=== PATIENT | male | born 1960 | race American Indian/Alaskan Native ===

== ENCOUNTER 2017-12-24 09:42 | Emergency (ER) | payer BC, MEDICARE ==
[2017-12-24] MEDS ORDERED: Albuterol 0.083% Inhal Sol (2.5 mg/3 mL) UD INH STA (10:12)
--- NOTE | 2017-12-24 10:45 | ED PDOC ---
Addendum entered and electronically signed by Lesa Kenyon PA 12/24/17 18:53: Addendum Addendum: 12/24/17 18:49 PT presented to ED for stated history. He was hemodynamically stable and in no distress in ED. His BP was elevated, but he stated that he did not take his antihypertensive. he denies CP, focal weakness, headache, facial droop, visual changes in ED. His BP improved in ED with medication He was DC home with abx for possible LLL infiltrate. Referred to his PMD. DX: Pneumonia; Hypertension Addendum entered and electronically signed by Terri Lindsey MD 12/24/17 13:15: - PA / [employer] / Resident Statement / has reviewed & agrees with the documentation as recorded. Original Note: Arrival/HPI - General Chief Complaint: GI Problem Time Seen by Provider: 12/24/17 10:05 Historian: Patient - History of Present Illness Narrative History of Present Illness (Text): 12/24/17 10:39 57yo male with pmhx of hypertension, diabetes, Asthma, sleep apnea who present with complaint of diarrhea x7 since this morning and nonproductive cough with bodyache x 3days. States he did not take any medication for his symptoms. Denies fever, chills,nausea, vomiting, abdominal pain, dizziness, headache, focal weakness, SOB, wheezing, diaphoresis, any other complaint. The by the rj toth states he was with his nieces and nephews and think they were sick. She is worried that he might have a flu. Past Medical History - Provider Review Nursing Documentation Reviewed: Yes - Infectious Disease Hx of Infectious Diseases: None - Tetanus Immunization Tetanus Immunization: Unknown - Cardiac Hx Hypertension: Yes - Pulmonary Hx Asthma: Yes Hx Sleep Apnea: Yes - Endocrine/Metabolic Hx Diabetes Mellitus Type 2: Yes - Musculoskeletal/Rheumatological Hx Back Pain: Yes - Psychiatric Hx Psychophysiologic Disorder: No Hx Substance Use: No - Surgical History Hx Appendectomy: Yes - Anesthesia Hx Anesthesia: Yes - Suicidal Assessment Feels Threatened In Home Enviroment: No Family/Social History - Physician Review Nursing Documentation Reviewed: Yes Family/Social History: Unknown Family HX Smoking Status: Never Smoked Hx Alcohol Use: No Hx Substance Use: No Hx Substance Use Treatment: No Allergies/Home Meds Allergies/Adverse Reactions: Allergies No Known Allergies Allergy (Verified 03/24/14 12:58) Home Medications: Home Meds Medication Instructions Recorded Confirmed Aspirin [Adult Low Dose Aspirin EC] 1 tab PO DAILY 12/24/17 12/24/17 Atorvastatin [Lipitor] 1 tab PO HS 12/24/17 12/24/17 Baclofen [Lioresal] 1 tab PO HS 12/24/17 12/24/17 Carvedilol [Coreg] 1 tab PO BID 12/24/17 12/24/17 Glimepiride [amaRYL] 1 tab PO BID 12/24/17 12/24/17 Irbesartan [Avapro] 1 tab PO DAILY 12/24/17 12/24/17 MetFORMIN [glucoPHAGE] 1 tab PO BID 12/24/17 12/24/17 Review of Systems - Physician Review All systems were reviewed & negative as marked: Yes - Review of Systems Constitutional: Normal Eyes: Normal ENT: Normal Respiratory: Cough. absent: SOB, Sputum Cardiovascular: Normal Gastrointestinal: Diarrhea. absent: Abdominal Pain, Constipation, Nausea, Vomiting, Hematochezia, Hematemesis Genitourinary Male: Normal Musculoskeletal: Normal Skin: Normal Neurological: Normal Endocrine: Normal Hemo/Lymphatic: Normal Psychiatric: Normal Physical Exam Vital Signs Reviewed: Yes Vital Signs Temp Pulse Resp BP Pulse Ox 12/24/17 09:53 182/111 H 12/24/17 09:48 97.9 F 72 18 188/109 H 97 Temperature: Afebrile Blood Pressure: Hypertensive Pulse: Regular Respiratory Rate: Normal Appearance: Positive for: Well-Appearing, Non-Toxic, Comfortable Pain Distress: None Mental Status: Positive for: Alert and Oriented X 3 - Systems Exam Head: Present: Atraumatic, Normocephalic Pupils: Present: PERRL Extroacular Muscles: Present: EOMI Conjunctiva: Present: Normal Mouth: Present: Moist Mucous Membranes Neck: Present: Normal Range of Motion Respiratory/Chest: Present: Clear to Auscultation, Good Air Exchange. No: Respiratory Distress, Accessory Muscle Use, Wheezes, Decreased Breath Sounds, Rales, Retracting, Rhonchi Cardiovascular: Present: Regular Rate and Rhythm, Normal S1, S2. No: Murmurs Abdomen: Present: Normal Bowel Sounds, Other (Soft). No: Tenderness, Distention, Peritoneal Signs, Rebound, Guarding, McBurney's Point Tender, Rovsing's Sign Present Back: Present: Normal Inspection Upper Extremity: Present: Normal Inspection. No: Cyanosis, Edema Lower Extremity: Present: Normal Inspection. No: Edema Neurological: Present: GCS=15, CN II-XII Intact, Speech Normal Skin: Present: Warm, Dry, Normal Color. No: Rashes Psychiatric: Present: Alert, Oriented x 3, Normal Insight, Normal Concentration Medical Decision Making - RAD Interpretation Radiology Orders: 12/24/17 10:11 CHEST TWO VIEWS (PA/LAT) [RAD] Stat - Medication Orders Current Medication Orders: Discontinued Medications Albuterol Sulfate (Albuterol 0.083% Inhal Olena (2.5 Mg/3 Ml) Ud) 2.5 mg INH STAT STA Stop: 12/24/17 10:13 Disposition/Present on Arrival - Present on Arrival Any Indicators Present on Arrival: No History of DVT/PE: No History of Uncontrolled Diabetes: No Urinary Catheter: No History of Decub. Ulcer: No History Surgical Site Infection Following: None - Disposition Have Diagnosis and Disposition been Completed?: Yes Diagnosis: Pneumonia Disposition: HOME/ ROUTINE Disposition Time: 12:35 Patient Plan: Discharge Condition: STABLE Discharge Instructions (ExitCare): Pneumonia in Adults Additional Instructions: Follow up with your Doctor Return to ED for any new or worsening symptoms Prescriptions: Azithromycin [Zithromax] 250 mg PO DAILY #4 tab Benzonatate [Tessalon Perle] 100 mg PO TID #20 capsule Referrals: Sayda Hugo MD [Medical Doctor] - Follow up with primary Forms: [employer] (Nepali)
[2017-12-24 11:28] VITALS: BMI 39.1
[2017-12-24 11:29] VITALS: PULSE 69
[2017-12-24] MEDS ORDERED: Amoxicillin-Clav 875-125 mg Tab PO STA (12:23)
--- NOTE | 2017-12-24 12:58 | RAD ---
Date of service: 12/24/2017 HISTORY: cough COMPARISON: 03/24/2024 TECHNIQUE: Chest PA and lateral FINDINGS: LUNGS: No active pulmonary disease. PLEURA: No significant pleural effusion identified. No pneumothorax apparent. CARDIOVASCULAR: No aortic atherosclerotic calcification present OSSEOUS STRUCTURES: No significant abnormalities. VISUALIZED UPPER ABDOMEN: Normal. OTHER FINDINGS: None. IMPRESSION: No active disease.
[2017-12-24 15:16] VITALS: BP 152/79; RESP 17; TEMP 98; O2SAT 98
== END 2017-12-24 15:15 | disposition home or self-care (01) ==
LOC: ED 09:42
DX: J18.9 Pneumonia, unspecified organism (principal); I10 Essential (primary) hypertension; Z91.19 Patient's noncompliance with other medical treatment and regimen

== ENCOUNTER 2018-03-26 16:51 | Emergency (ER) | payer MEDICARE ==
[2018-03-26 16:52] VITALS: BMI 40.5
[2018-03-26 17:17] VITALS: TEMP 98.3
[2018-03-26] MEDS ORDERED: Sodium Chloride 0.9% 1,000 ML IV STA (17:34)
[2018-03-26 18:41] LABS: BASO # 0.02 K/mm3 (0.0-2.0); BASO % 0.2 % (0.0-3.0); EOS # 0.1 (0.0-0.7); GRAN # 5.22 (1.4-6.5); HEMOGLOBIN 12.6 g/dL (14.0-18.0); LYMPH # 1.9 (1.2-3.4); LYMPH % 23.2 % (22.0-35.0); MEAN CELL VOLUME 89.6 fl (80.0-105.0); MEAN CORPUSCULAR HEMOGLOBIN 30.4 pg (25.0-35.0); MEAN PLATELET VOLUME 9.7 fl (7.0-11.0); MONO # 0.9 (0.1-0.6); MONO % 10.6 % (1.0-6.0); RBC 4.14 10^6/uL (3.5-6.1); RED CELL DISTRIBUTION WIDTH 12.1 % (11.5-14.5)
[2018-03-26 18:55] LABS: ALB/GLOB RATIO 1.2 (1.1-1.8); ALBUMIN 4.4 g/dL (3.0-4.8)
--- NOTE | 2018-03-26 19:33 | ED PDOC ---
Arrival/HPI - General Chief Complaint: GI Problem Time Seen by Provider: 03/26/18 16:52 Historian: Patient - History of Present Illness Narrative History of Present Illness (Text): 03/26/18 19:30 A 57 year old male, whose past medical history includes hypertension, diabetes, asthma, sleep apnea, presents to the emergency department complaining of vomiting and diarrhea for 1 week. Patient reports she went to another hospital and was not admitted last week. He did not follow-up with PMD. Patient denies any shortness of breath, fever, any pain, hematuria, bloody stool, or any other complaints at this time. PMD: Dr. Mary Arana Past Medical History - Provider Review Nursing Documentation Reviewed: Yes - Infectious Disease Hx of Infectious Diseases: None - Tetanus Immunization Tetanus Immunization: Unknown - Cardiac Hx Hypertension: Yes - Pulmonary Hx Asthma: Yes Hx Sleep Apnea: Yes - Endocrine/Metabolic Hx Diabetes Mellitus Type 2: Yes - Musculoskeletal/Rheumatological Hx Back Pain: Yes - Psychiatric Hx Psychophysiologic Disorder: No Hx Substance Use: No - Surgical History Hx Appendectomy: Yes - Anesthesia Hx Anesthesia: Yes Hx Anesthesia Reactions: No Hx Malignant Hyperthermia: No - Suicidal Assessment Feels Threatened In Home Enviroment: No Family/Social History - Physician Review Nursing Documentation Reviewed: Yes Family/Social History: No Known Family HX Smoking Status: Never Smoked Hx Alcohol Use: No Hx Substance Use: No Hx Substance Use Treatment: No Allergies/Home Meds Allergies/Adverse Reactions: Allergies No Known Allergies Allergy (Verified 03/24/14 12:58) Home Medications: Home Meds Medication Instructions Recorded Confirmed Aspirin [Adult Low Dose Aspirin EC] 1 tab PO DAILY 12/24/17 12/24/17 RX: Atorvastatin [Lipitor] 1 tab PO HS 12/24/17 12/24/17 RX: Baclofen [Lioresal] 1 tab PO HS 12/24/17 12/24/17 RX: Carvedilol [Coreg] 1 tab PO BID 12/24/17 12/24/17 RX: Glimepiride [amaRYL] 1 tab PO BID 12/24/17 12/24/17 RX: Irbesartan [Avapro] 1 tab PO DAILY 12/24/17 12/24/17 RX: MetFORMIN [glucoPHAGE] 1 tab PO BID 12/24/17 12/24/17 Review of Systems - Physician Review All systems were reviewed & negative as marked: Yes - Review of Systems Constitutional: absent: Fevers Respiratory: absent: SOB Cardiovascular: absent: Chest Pain Gastrointestinal: Diarrhea, Vomiting. absent: Abdominal Pain, Stool Changes (no bloody stool) Genitourinary Male: absent: Hematuria Physical Exam Vital Signs Reviewed: Yes Vital Signs Temp Pulse Resp BP Pulse Ox 03/26/18 16:52 98.3 F 86 18 107/77 97 Temperature: Afebrile Blood Pressure: Normal Pulse: Regular Respiratory Rate: Normal Appearance: Positive for: Well-Appearing, Non-Toxic, Comfortable Pain Distress: None Mental Status: Positive for: Alert and Oriented X 3 - Systems Exam Head: Present: Atraumatic, Normocephalic Pupils: Present: PERRL Extroacular Muscles: Present: EOMI Conjunctiva: Present: Normal Mouth: Present: Moist Mucous Membranes Neck: Present: Normal Range of Motion Respiratory/Chest: Present: Clear to Auscultation, Good Air Exchange. No: Respiratory Distress, Accessory Muscle Use Cardiovascular: Present: Regular Rate and Rhythm, Normal S1, S2. No: Murmurs Abdomen: No: Tenderness, Distention, Peritoneal Signs Back: Present: Normal Inspection Upper Extremity: Present: Normal Inspection. No: Cyanosis, Edema Lower Extremity: Present: Normal Inspection. No: Edema Neurological: Present: GCS=15, CN II-XII Intact, Speech Normal Skin: Present: Warm, Dry, Normal Color. No: Rashes Psychiatric: Present: Alert, Oriented x 3, Normal Insight, Normal Concentration Medical Decision Making ED Course and Treatment: 03/26/18 19:33 Impression: 57 year old male with vomiting/diarrhea. Plan: -- Abd/Pelvis CT -- Labs -- Urine Culture -- Urinalysis -- Pepcid -- Zofran -- IV Fluids -- Reassess and disposition Prior Visits: Notes and results from previous visits were reviewed. Last seen here on 12/24/2017 for diarrhea, non-productive cough, and body aches. Patient was discharged home. Progress Notes: - Lab Interpretations Lab Results: Total Bilirubin 1.1 mg/dL (0.2-1.3) 03/26/18 18:00 AST 37 U/L (17-59) 03/26/18 18:00 ALT 27 U/L (7-56) 03/26/18 18:00 Alkaline Phosphatase 87 U/L (38-126) 03/26/18 18:00 Total Protein 8.1 g/dL (5.8-8.3) 03/26/18 18:00 Albumin 4.4 g/dL (3.0-4.8) 03/26/18 18:00 Globulin 3.7 gm/dL 03/26/18 18:00 Albumin/Globulin Ratio 1.2 (1.1-1.8) 03/26/18 18:00 Amylase 192 U/L (35-125) H 03/26/18 18:00 Lipase 125 U/L (23-300) 03/26/18 18:00 I have reviewed the lab results: Yes - RAD Interpretation Radiology Orders: 03/26/18 18:57 ABD & PELVIS W/O PO OR IV CONT [CT] Stat - Medication Orders Current Medication Orders: Sodium Chloride (Sodium Chloride 0.9%) 1,000 mls @ 250 mls/hr IV .Q4H STA Stop: 03/26/18 21:33 Last Admin: 03/26/18 18:05 Dose: 250 mls/hr eMAR Start Stop Document 03/26/18 18:05 EQ (Rec: 03/26/18 18:05 EQ [facility] [id number]) Intravenous Solution Start Date 03/26/18 Start Time 18:05 Discontinued Medications Famotidine (Pepcid) 20 mg IVP STAT STA Stop: 03/26/18 17:35 Last Admin: 03/26/18 18:05 Dose: 20 mg IVP Administration Document 03/26/18 18:05 EQ (Rec: 03/26/18 18:05 EQ [facility] [id number]) Charges for Administration # of IVP Administrations 1 Ondansetron HCl (Zofran Inj) 4 mg IVP STAT STA Stop: 03/26/18 17:35 Last Admin: 03/26/18 18:05 Dose: 4 mg IVP Administration Document 03/26/18 18:05 EQ (Rec: 03/26/18 18:05 EQ [facility] [id number]) Charges for Administration # of IVP Administrations 1 - Scribe Statement The provider has reviewed the documentation as recorded by the Deseanibmary Stringer Provider Scribe Attestation: All medical record entries made by the Scribe were at my direction and personally dictated by me. I have reviewed the chart and agree that the record accurately reflects my personal performance of the history, physical exam, medical decision making, and the department course for this patient. I have also personally directed, reviewed, and agree with the discharge instructions and disposition. Disposition/Present on Arrival - Present on Arrival Any Indicators Present on Arrival: No History of DVT/PE: No History of Uncontrolled Diabetes: No Urinary Catheter: No History of Decub. Ulcer: No History Surgical Site Infection Following: None - Disposition Have Diagnosis and Disposition been Completed?: Yes Diagnosis: Colitis Disposition: HOME/ ROUTINE Disposition Time: 20:00 Condition: GOOD Discharge Instructions (ExitCare): Colitis (DC) Additional Instructions: HUA FELIX, thank you for letting us take care of you today. Your provider was Khloe Marroquin MD and you were treated for VOMITING. The emergency medical care you received today was directed at your acute symptoms. If you were prescribed any medication, please fill it and take as directed. It may take several days for your symptoms to resolve. Return to the Emergency Department if your symptoms worsen, do not improve, or if you have any other problems. Please contact your doctor or call one of the physicians/clinics you have been referred to that are listed on the Patient Visit Information form that is included in your discharge packet. Bring any paperwork you were given at discharge with you along with any medications you are taking to your follow up visit. Our treatment cannot replace ongoing medical care by a primary care provider outside of the emergency department. Thank you for allowing the [facility] team to be part of your care today. If you had an X-Ray or CT scan: A Radiologist will review the ED reading if any change in treatment is needed we will contact you. If you had a blood, urine, or wound culture: It will take several days for the results, if any change in treatment is needed we will contact you. If you had an STI test: It will take 48 hours for the results. Please call after 1 week if you have not heard back. Prescriptions: Levofloxacin [Levaquin] 500 mg PO DAILY #7 tablet Metronidazole [Flagyl] 500 mg PO TID #21 tablet Referrals: Mary Arana MD [Primary Care Provider] - Follow up with primary Forms: [employer] (Nepalese)
--- NOTE | 2018-03-26 21:28 | ED PDOC ---
Physical Exam Vital Signs Temp Pulse Resp BP Pulse Ox 03/26/18 20:22 79 18 109/71 97 03/26/18 16:52 98.3 F 86 18 107/77 97 Medical Decision Making ED Course and Treatment: 03/26/18 21:02 Case endorsed to me by Dr. Bermudez pending CT of abdomen and pelvis, reassessment, and disposition. EXAM: CT Abdomen and Pelvis Without IV contrast Electronically signed on Mar 26, 2018 9:05:48 PM EST by: Carlos A Johnson M.D., IMPRESSION: 1. Thick walled fluid filled loops of jejunum as well as ileum compatible with enteritis. Infectious and inflammatory etiologies are considered. 2. Mucosal wall thickening of the lower esophagus could indicate some reflux esophagitis. 3. Prostatic hypertrophy. Measurement is given above. 4. A small umbilical hernia is identified which contains a segment of small intestine without evidence of obstruction. 5. A small right inguinal-scrotal hernia is noted which contains fat. 03/26/18 21:28 On re-evaluation, patient is in no acute distress. I have discussed the results and plan with the patient, who expresses understanding. Patient in agreement with plan to be discharged home. Patient is stable for discharge. Patient was instructed to follow up with physician or return if symptoms worsen or new concerning symptoms arise. - Lab Interpretations Lab Results: Total Bilirubin 1.1 mg/dL (0.2-1.3) 03/26/18 18:00 AST 37 U/L (17-59) 03/26/18 18:00 ALT 27 U/L (7-56) 03/26/18 18:00 Alkaline Phosphatase 87 U/L (38-126) 03/26/18 18:00 Total Protein 8.1 g/dL (5.8-8.3) 03/26/18 18:00 Albumin 4.4 g/dL (3.0-4.8) 03/26/18 18:00 Globulin 3.7 gm/dL 03/26/18 18:00 Albumin/Globulin Ratio 1.2 (1.1-1.8) 03/26/18 18:00 Amylase 192 U/L (35-125) H 03/26/18 18:00 Lipase 125 U/L (23-300) 03/26/18 18:00 - RAD Interpretation Radiology Orders: 03/26/18 18:57 ABD & PELVIS W/O PO OR IV CONT [CT] Stat - Medication Orders Current Medication Orders: Sodium Chloride (Sodium Chloride 0.9%) 1,000 mls @ 250 mls/hr IV .Q4H STA Stop: 03/26/18 21:33 Last Admin: 03/26/18 18:05 Dose: 250 mls/hr eMAR Start Stop Document 03/26/18 18:05 EQ (Rec: 03/26/18 18:05 EQ [facility] [id number]) Intravenous Solution Start Date 03/26/18 Start Time 18:05 Discontinued Medications Famotidine (Pepcid) 20 mg IVP STAT STA Stop: 03/26/18 17:35 Last Admin: 03/26/18 18:05 Dose: 20 mg IVP Administration Document 03/26/18 18:05 EQ (Rec: 03/26/18 18:05 EQ [facility] [id number]) Charges for Administration # of IVP Administrations 1 Ondansetron HCl (Zofran Inj) 4 mg IVP STAT STA Stop: 03/26/18 17:35 Last Admin: 03/26/18 18:05 Dose: 4 mg IVP Administration Document 03/26/18 18:05 EQ (Rec: 03/26/18 18:05 EQ [facility] [id number]) Charges for Administration # of IVP Administrations 1 - Scribe Statement The provider has reviewed the documentation as recorded by the Aj Nguyen Provider Scribe Attestation: All medical record entries made by the Scribe were at my direction and personally dictated by me. I have reviewed the chart and agree that the record accurately reflects my personal performance of the history, physical exam, medical decision making, and the department course for this patient. I have also personally directed, reviewed, and agree with the discharge instructions and disposition. Disposition/Present on Arrival - Present on Arrival Any Indicators Present on Arrival: No History of DVT/PE: No History of Uncontrolled Diabetes: No Urinary Catheter: No History of Decub. Ulcer: No History Surgical Site Infection Following: None - Disposition Have Diagnosis and Disposition been Completed?: Yes Diagnosis: Colitis Disposition: HOME/ ROUTINE Disposition Time: 21:32 Condition: STABLE Discharge Instructions (ExitCare): Colitis (DC) Additional Instructions: HUA FELIX, thank you for letting us take care of you today. Your provider was Khloe Marroquin MD and you were treated for VOMITING. The emergency medical care you received today was directed at your acute symptoms. If you were prescribed any medication, please fill it and take as directed. It may take several days for your symptoms to resolve. Return to the Emergency Department if your symptoms worsen, do not improve, or if you have any other problems. Please contact your doctor or call one of the physicians/clinics you have been referred to that are listed on the Patient Visit Information form that is included in your discharge packet. Bring any paperwork you were given at discharge with you along with any medications you are taking to your follow up visit. Our treatment cannot replace ongoing medical care by a primary care provider outside of the emergency department. Thank you for allowing the [facility] team to be part of your care today. If you had an X-Ray or CT scan: A Radiologist will review the ED reading if any change in treatment is needed we will contact you. If you had a blood, urine, or wound culture: It will take several days for the results, if any change in treatment is needed we will contact you. If you had an STI test: It will take 48 hours for the results. Please call after 1 week if you have not heard back. Prescriptions: Levofloxacin [Levaquin] 500 mg PO DAILY #7 tablet Metronidazole [Flagyl] 500 mg PO TID #21 tablet Referrals: Mary Arana MD [Primary Care Provider] - Follow up with primary Forms: [employer] (Setswana)
[2018-03-26 21:48] VITALS: BP 106/76; PULSE 72; RESP 16; O2SAT 99
--- NOTE | 2018-03-27 14:47 | CT ---
Date of service: 03/26/2018 PROCEDURE: CT Abdomen and Pelvis without intravenous contrast HISTORY: diffuse abd pain with vomiting and diarrhea COMPARISON: None. TECHNIQUE: Technique. Contrast dose: Radiation dose: Total exam DLP = 1473.73 mGy-cm. This CT exam was performed using one or more of the following dose reduction techniques: Automated exposure control, adjustment of the mA and/or kV according to patient size, and/or use of iterative reconstruction technique. FINDINGS: LOWER THORAX: Unremarkable. LIVER: Unremarkable. No gross lesion or ductal dilatation. GALLBLADDER AND BILE DUCTS: Unremarkable. PANCREAS: Unremarkable. No gross lesion or ductal dilatation. SPLEEN: Unremarkable. ADRENALS: Unremarkable. No mass. KIDNEYS AND URETERS: Unremarkable. No hydronephrosis. No solid mass. VASCULATURE: Unremarkable. No aortic aneurysm. No aortic atherosclerotic calcification or mural plaque present. BOWEL: Unremarkable. No obstruction. No gross mural thickening. APPENDIX: Unremarkable. Normal appendix. PERITONEUM: Unremarkable. No free fluid. No free air. There is a fat containing right inguinal hernia extending into the scrotum. LYMPH NODES: Unremarkable. No enlarged lymph nodes. BLADDER: Unremarkable. REPRODUCTIVE: Unremarkable. BONES: No acute fracture. OTHER FINDINGS: The report concurs with the preliminary [facility] report IMPRESSION: No acute intra-abdominal findings
== END 2018-03-26 21:46 | disposition home or self-care (01) ==
LOC: ED 16:51
DX: K52.9 Noninfective gastroenteritis and colitis, unspecified (principal); E11.9 Type 2 diabetes mellitus without complications; I10 Essential (primary) hypertension; G47.30 Sleep apnea, unspecified
CPT/HCPCS: 74176; 80053; 82150; 82948; 83690; 83735; 85025; 96374; 96375; 99284; J2405; J7030

== ENCOUNTER 2018-03-31 00:11 | Observation (INO) | payer MEDICARE ==
[2018-03-31 00:11] VITALS: BMI 40.5
[2018-03-31] MEDS ORDERED: DiphenhydrAMINE 50 mg/ml Inj IVP ONE (00:48)
--- NOTE | 2018-03-31 00:49 | ED PDOC ---
Arrival/HPI - General Chief Complaint: Chest Pain Time Seen by Provider: 03/31/18 00:38 Historian: Patient - History of Present Illness Narrative History of Present Illness (Text): 03/31/18 00:47 Chano Babin is a 57 year old male, whose past medical history includes hypertension, diabetes, asthma, and sleep apnea, who presents to the Emergency department complaining of chest pain. Patient states he has been experiencing nausea and vomiting for the past few days and developed chest pain with associated upper back pain tonight. Patient was seen earlier this week for similar symptoms, treated for colitis, and discharged home. notes 2 other relative have been ill with similar GI symptoms. Patient denies any fever, chills, shortness of breath, diarrhea, urinary symptoms, back pain, neck pain, headache, dizziness, or any other complaints. Symptom Onset: Gradual Symptom Course: Unchanged Activities at Onset: Light Context: Home Past Medical History - Provider Review Nursing Documentation Reviewed: Yes - Infectious Disease Hx of Infectious Diseases: None - Tetanus Immunization Tetanus Immunization: Unknown - Cardiac Hx Hypertension: Yes - Pulmonary Hx Asthma: Yes Hx Sleep Apnea: Yes - Endocrine/Metabolic Hx Diabetes Mellitus Type 2: Yes - Musculoskeletal/Rheumatological Hx Back Pain: Yes - Psychiatric Hx Psychophysiologic Disorder: No Hx Substance Use: No - Surgical History Hx Appendectomy: Yes - Anesthesia Hx Anesthesia: Yes Hx Anesthesia Reactions: No Hx Malignant Hyperthermia: No - Suicidal Assessment Feels Threatened In Home Enviroment: No Family/Social History - Physician Review Nursing Documentation Reviewed: Yes Family/Social History: Unknown Family HX Smoking Status: Never Smoked Hx Alcohol Use: No Hx Substance Use: No Hx Substance Use Treatment: No Allergies/Home Meds Allergies/Adverse Reactions: Allergies No Known Allergies Allergy (Verified 03/31/18 00:20) Home Medications: Home Meds Medication Instructions Recorded Confirmed Aspirin [Adult Low Dose Aspirin EC] 1 tab PO DAILY 12/24/17 12/24/17 Atorvastatin [Lipitor] 1 tab PO HS 12/24/17 12/24/17 Baclofen [Lioresal] 1 tab PO HS 12/24/17 12/24/17 Carvedilol [Coreg] 1 tab PO BID 12/24/17 12/24/17 Glimepiride [amaRYL] 1 tab PO BID 12/24/17 12/24/17 Irbesartan [Avapro] 1 tab PO DAILY 12/24/17 12/24/17 MetFORMIN [glucoPHAGE] 1 tab PO BID 12/24/17 12/24/17 Review of Systems - Physician Review All systems were reviewed & negative as marked: Yes - Review of Systems Constitutional: Normal. absent: Fevers Eyes: Normal ENT: Normal Respiratory: Normal. absent: SOB, Cough Cardiovascular: Chest Pain Gastrointestinal: Nausea, Vomiting Genitourinary Male: Normal. absent: Dysuria, Frequency, Hematuria, Urinary Output Changes Musculoskeletal: Back Pain. absent: Neck Pain Skin: Normal. absent: Rash Neurological: Normal. absent: Headache, Dizziness Endocrine: Normal Hemo/Lymphatic: Normal Psychiatric: Normal Physical Exam Vital Signs Reviewed: Yes Vital Signs Temp Pulse Resp BP Pulse Ox 03/31/18 00:20 97.6 F 95 H 18 122/75 97 Temperature: Afebrile Blood Pressure: Normal Pulse: Regular Respiratory Rate: Normal Appearance: Positive for: Well-Appearing, Non-Toxic, Comfortable Pain Distress: None Mental Status: Positive for: Alert and Oriented X 3 - Systems Exam Head: Present: Atraumatic, Normocephalic Pupils: Present: PERRL Extroacular Muscles: Present: EOMI Conjunctiva: Present: Normal Mouth: Present: Moist Mucous Membranes Neck: Present: Normal Range of Motion Respiratory/Chest: Present: Clear to Auscultation, Good Air Exchange. No: Respiratory Distress, Accessory Muscle Use Cardiovascular: Present: Regular Rate and Rhythm, Normal S1, S2. No: Murmurs Abdomen: No: Tenderness, Distention, Peritoneal Signs Back: Present: Normal Inspection Upper Extremity: Present: Normal Inspection. No: Cyanosis, Edema Lower Extremity: Present: Normal Inspection. No: Edema Neurological: Present: GCS=15, CN II-XII Intact, Speech Normal Skin: Present: Warm, Dry, Normal Color. No: Rashes Psychiatric: Present: Alert, Oriented x 3, Normal Insight, Normal Concentration Medical Decision Making ED Course and Treatment: 03/31/18 00:47 Impression: 57 year old male complaining of chest pain, upper back pain, nausea, and vomiting. Plan: -- EKG -- Chest X-ray -- Labs, cardiac enzymes, lipase -- IV fluids -- Benadryl -- Reglan -- Pepcid -- Reassess and disposition Prior Visits: Notes and results from previous visits were reviewed. Progress Notes: Reviewed EKG, NSR at 83 bpm. Inferior infarct. Possible anterior infarct. Non- specific ST/T wave changes. 03/31/18 02:22 Chest X-ray reviewed, shows no acute processes. 03/31/18 03:[address] Chicas, who is aware and agrees with plan. Acecpts pt in to her service. Pt will be admitted to Telemetry for chest pain, dehydration, and hypoglycemia. - RAD Interpretation Resident Advisor: ED Physician - EKG Interpretation Interpreted by ED Physician: Yes Type: 12 lead EKG - Scribe Statement The provider has reviewed the documentation as recorded by the Deseanibmary Cox Provider Scribe Attestation: All medical record entries made by the Scribe were at my direction and personally dictated by me. I have reviewed the chart and agree that the record accurately reflects my personal performance of the history, physical exam, medical decision making, and the department course for this patient. I have also personally directed, reviewed, and agree with the discharge instructions and disposition. Disposition/Present on Arrival - Present on Arrival Any Indicators Present on Arrival: No History of DVT/PE: No History of Uncontrolled Diabetes: No Urinary Catheter: No History of Decub. Ulcer: No History Surgical Site Infection Following: None - Disposition Have Diagnosis and Disposition been Completed?: Yes Diagnosis: Chest pain, Dehydration, Hypoglycemia Disposition: HOSPITALIZED Disposition Time: 03:16 Patient Plan: Admission Patient Problems: Current Active Problems Problem Status Onset Chest pain Acute Dehydration Acute Hypoglycemia Acute Condition: STABLE
[2018-03-31] MEDS ORDERED: Sodium Chloride 0.9% 1,000 ML IV SCH (01:00)
[2018-03-31 01:34] LABS: HEMOGLOBIN 12.8 g/dL (14.0-18.0); MEAN CELL VOLUME 89.3 fl (80.0-105.0); MEAN CORPUSCULAR HEMOGLOBIN 30.4 pg (25.0-35.0); MEAN PLATELET VOLUME 9.9 fl (7.0-11.0); RBC 4.21 10^6/uL (3.5-6.1); RED CELL DISTRIBUTION WIDTH 12.3 % (11.5-14.5)
[2018-03-31 01:38] LABS: WHITE BLOOD COUNT 10.3 10^3/uL (4.5-11.0)
[2018-03-31 02:45] LABS: TROPONIN I < 0.01 ng/mL
[2018-03-31 02:58] LABS: ALB/GLOB RATIO 1.3 (1.1-1.8); ALBUMIN 4.5 g/dL (3.0-4.8); ALT/SGPT 33 U/L (7-56); AST/SGOT 56 U/L (17-59); CALCIUM 9.1 mg/dL (8.4-10.5); GFR NON-AFRICAN AMERICAN 16
[2018-03-31 02:59] LABS: BLOOD UREA NITROGEN 43 mg/dL (7-21); LIPASE 107 U/L (23-300)
[2018-03-31] MEDS ORDERED: Dextrose 50% SYRINGE Inj (50 ml) IVP ONE ×2 (03:05→11:26)
[2018-03-31] MEDS ORDERED: Dextrose 50% SYRINGE Inj (50 ml) ONE (03:05)
[2018-03-31 03:11] LABS: INR 1.38; PARTIAL THROMBOPLASTIN TIME 37.1 Seconds (26.9-38.3); PROTHROMBIN TIME 15.3 SECONDS (9.4-12.5)
[2018-03-31] MEDS ORDERED: Sodium Chloride 0.9% 1,000 ML IV STA (03:13)
[2018-03-31] MEDS ORDERED: Potassium Chloride 20 mEq ER Tab PO STA (03:15)
[2018-03-31] MEDS ORDERED: Dextrose 50% SYRINGE Inj (50 ml) IV PRN (09:47)
[2018-03-31] MEDS ORDERED: Sodium Chloride 0.45% 1,000 ML IV SCH (10:00)
--- NOTE | 2018-03-31 10:58 | CARD ---
APPROVED REPORT Date of service: 03/31/2018 EKG Measurement Heart [id number] <Conclusion> Normal sinus rhythm Minimal voltage criteria for LVH, may be normal variant Inferior infarct, age undetermined Cannot rule out Anterior infarct, age undetermined Abnormal ECG
[2018-03-31] MEDS ORDERED: Dextrose 5%/0.45% NS 1,000 ML IV SCH ×3 (11:30→21:45)
[2018-03-31] MEDS: Insulin Lispro (humaLOG) MEDIUM Coverage SC SCH ×3 (11:53→23:15)
[2018-03-31 12:42] LABS: HDL CHOLESTEROL 32 mg/dL (29-60)
[2018-03-31 12:52] LABS: LDL CHOLESTEROL 49 mg/dL (0-129)
--- NOTE | 2018-03-31 13:19 | CON ---
DATE: 03/31/2018 CARDIOLOGY CONSULTATION HISTORY: The patient is a 57-year-old male who presents with several days of nausea and vomiting. His cardiac history includes a history of a stress test that was done at [facility] one year ago and it was said to be unremarkable. However, he presents with focal epigastric pain which is now resolved. The patient's cardiac risk factors include diabetes mellitus, hypertension. The patient does not smoke. He does not know of a previous cardiac history. 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 REVIEW OF SYSTEMS: A 14-point review of systems is reviewed in detail. No cardiac symptoms other than the substernal chest discomfort were noted. Negative edema. Negative dyspnea. PHYSICAL EXAMINATION: VITAL SIGNS: Blood pressure is 142/98, heart rates in the 90s. NECK: Negative JVD. LUNGS: No rales noted. HEART: Reveals S1, S2. EXTREMITIES: Without edema. ABDOMEN: Increased girth. LABORATORY DATA: EKG shows normal sinus rhythm with Q waves in II, III and aVF consistent with an old inferior wall NJ. BUN and creatinine went from 28 and 1.9 up to 43 and 3.9. Hemoglobin is 12.8. IMPRESSION: 1. Atypical chest pain which is now resolved. 2. No evidence for acute coronary syndrome. 3. 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 4. Diabetes mellitus. 5. Hypertension. 6. Renal insufficiency. 7. Prerenal azotemia secondary to nausea and vomiting and dehydration. Given these findings, IV hydration would be appropriate. We will obtain an echocardiogram to evaluate his LV function. We will obtain serial troponins. Matt Robledo MD
--- NOTE | 2018-03-31 14:16 | CON ---
DATE: 03/31/2018 GASTROENTEROLOGY CONSULTATION REQUESTING PHYSICIAN: Waldemar Chicas MD REASON FOR CONSULTATION: I have been asked to see this 57-year-old male with a history of diabetes mellitus for 10 years, asthma, sleep apnea, hypertension, who comes to the hospital with intractable vomiting for the last 3-4 days. The patient states that his symptoms began several weeks ago after eating at a restaurant and developing nausea, vomiting and diarrhea. The nausea and vomiting stopped after 1-2 days. He continued to have watery diarrhea of between 8 to 10 episodes daily associated with nocturnal diarrhea. This again stopped after 1-2 days. Over the last several weeks, he has had recurrent vomiting. He denies any abdominal pain or hematemesis. He denies any weight loss. Apparently, two other people at home have had a similar illness with vomiting and diarrhea. Routine blood work revealed elevated BUN and creatinine consistent with prerenal azotemia. The patient had a CT scan of the abdomen and pelvis several days ago which did not reveal any acute findings. There is no evidence of intestinal obstruction or colitis. PAST MEDICAL HISTORY: Notable for diabetes mellitus, asthma, hypertension, obstructive sleep apnea. SOCIAL HISTORY: He denies cigarette smoking or alcohol use. FAMILY HISTORY: Noncontributory. PAST SURGICAL HISTORY: Notable for appendectomy. MEDICATIONS AT HOME: Include Lipitor, baclofen, Coreg, glimepiride, irbesartan, metformin, aspirin and atorvastatin. PHYSICAL EXAMINATION: GENERAL: Well-developed male, lying in bed, in no acute distress. VITAL SIGNS: Reveal temperature of 97.9, blood pressure 118/86, heart rate 94. HEENT: Reveal sclerae to be white. Conjunctivae pink. NECK: Supple. CHEST: Reveal lungs to be clear. HEART: Reveals regular rate and rhythm. ABDOMEN: Obese, soft, nontender. EXTREMITIES: No edema. LABORATORY DATA: Reveal white blood cell count 10.3, hemoglobin 12.8. Coags reveal PT 15.3, INR 1.38. Chemistries reveal BUN 43, creatinine 3.9, potassium 3.4, random glucose of 35. IMPRESSION: A 57-year-old male with history of diabetes mellitus, hypertension, obstructive sleep apnea with intractable vomiting for the last 2-3 weeks increasing in severity. The patient is clinically dehydrated with prerenal azotemia. CT scan of the abdomen and pelvis performed several days ago in the emergency room was unremarkable. Etiology of vomiting may be secondary to gastroenteritis versus possible gastroparesis; given his history of diabetes mellitus, one must rule out gastric outlet obstruction. RECOMMENDATIONS: 1. We will schedule the patient for an upper endoscopy in the morning. 2. Check stool for C&S and O&P. Carlos Gomez MD
--- NOTE | 2018-03-31 14:36 | RAD ---
Date of service: 03/31/2018 HISTORY: chest pain COMPARISON: 12/24/2017 FINDINGS: LUNGS: No active pulmonary disease. PLEURA: No significant pleural effusion identified, no pneumothorax apparent. CARDIOVASCULAR: Heterogeneous plaque formation. No radiographic findings to suggest acute or significant cardiovascular disease. Aneurysmal dilatation of the thoracic aorta. OSSEOUS STRUCTURES: No significant abnormalities. VISUALIZED UPPER ABDOMEN: Normal. OTHER FINDINGS: None. IMPRESSION: No active disease. No significant interval change compared to the prior examination(s).
--- NOTE | 2018-03-31 17:38 | US ---
Date of service: 03/31/2018 PROCEDURE: Ultrasound of the Kidneys HISTORY: Dehydration and acute renal failure COMPARISON: None available. TECHNIQUE: Sonogram of the kidneys. FINDINGS: RIGHT KIDNEY: Measures: 6 x 11.6 cm. Normal in size, contour and echogenicity. No stone, solid mass lesion or hydronephrosis visualized. LEFT KIDNEY: Measures: 6 x 11.6 cm. Normal in size, contour and echogenicity. No stone, solid mass lesion or hydronephrosis visualized. OTHER FINDINGS: None. IMPRESSION: Unremarkable renal sonogram.
--- NOTE | 2018-03-31 22:00 | HP ---
DATE OF EXAM: 03/31/2018 HISTORY OF PRESENT ILLNESS: The patient is a 57-year-old black male who states almost 10 days ago, he went to eat after sometime he started to have nausea, vomiting and diarrhea. Since then, he has been intermittently vomiting. He went to [facility], kept for day or two and then was discharged, then he came to emergency room in [facility] on 03/26/2018, had CAT scan done, and was also given some antibiotic and sent home. He continue to vomit and has been feeling very weak. Last night, he developed some chest discomfort, so he came to ER for further evaluation. He denies any fever or chills. No rectal bleeding. No hemoptysis. No hematemesis. No fever or chills. No cough or congestion. PAST MEDICAL HISTORY: Significant for: 1. Hky-kibfloc-fnaxynblk diabetes. 2. Hypertension. 3. Hyperlipidemia. PAST SURGICAL HISTORY: Significant for: 1. Tonsillectomy. 2. Circumcision. 3. Appendectomy. ALLERGIES: THE PATIENT IS NOT ALLERGIC TO ANY MEDICATION. MEDICATIONS AT HOME: The patient is on Flagyl 500 t.i.d., metformin 500 twice a day, Levaquin 500 daily, Avapro, glimepiride, Coreg, Zithromax, Lipitor, and aspirin. SOCIAL HISTORY: He denies smoking, drinking or alcohol use and socially drinks only. REVIEW OF SYSTEMS: Significant for intermittent nausea; otherwise, he is doing better, no more chest pain. PHYSICAL EXAMINATION: GENERAL: He is awake, alert, oriented, and communicative. VITAL SIGNS: He is afebrile, pulse 98, respirations 20, and blood pressure 142/98. LUNGS: Bilateral fair airflow. No rhonchi or crackles. HEART: S1 and S2 audible. ABDOMEN: Soft and nontender. No rebound. No guarding. NEUROLOGIC: The patient is awake, alert, oriented, and communicative. LABORATORY DATA: WBC is 10.3, hemoglobin 12.8, hematocrit 37.6, and platelets 266. PT . INR 1.38. Chemistry; sodium 139, potassium 3.4, chloride 100, CO2 of 27, BUN 43, creatinine 3.9, and blood sugar 35. ASSESSMENT: 1. Acute renal failure, prerenal. 2. Wbn-yfmmqyt-rqtdsjpru diabetes. 3. History of hypertension. PLAN: I will increase his IV fluid, we give him D50, his blood sugar and monitor his blood sugar and hold off his oral hypoglycemics. We will followup his electrolyte. I will order for his renal sonogram and the patient has CT scan done on 03/26/2018 that was unremarkable. Waldemar Chicas MD
[2018-03-31] MEDS: Sodium Chloride 0.45% 1,000 ML IV SCH (22:09)
[2018-04-01 06:57] LABS: ALB/GLOB RATIO 1.2 (1.1-1.8); ALBUMIN 4.3 g/dL (3.0-4.8); ALT/SGPT 36 U/L (7-56); AST/SGOT 34 U/L (17-59); BASO # 0.03 K/mm3 (0.0-2.0); BASO % 0.3 % (0.0-3.0); BLOOD UREA NITROGEN 37 mg/dL (7-21); CALCIUM 8.6 mg/dL (8.4-10.5); EOS # 0.1 (0.0-0.7); EOS % 1.2 % (1.5-5.0); GFR NON-AFRICAN AMERICAN 25; LYMPH # 2.6 (1.2-3.4); LYMPH % 26.8 % (22.0-35.0); MEAN CELL VOLUME 89.4 fl (80.0-105.0); MEAN CORPUSCULAR HEMOGLOBIN 29.6 pg (25.0-35.0); MEAN CORPUSCULAR HGB CONC 33.1 g/dl (31.0-37.0); MEAN PLATELET VOLUME 9.8 fl (7.0-11.0); MONO # 1.2 (0.1-0.6); MONO % 12.3 % (1.0-6.0); RBC 4.05 10^6/uL (3.5-6.1); RED CELL DISTRIBUTION WIDTH 12.2 % (11.5-14.5); TROPONIN I < 0.01 ng/mL; URIC ACID 9.4 mg/dL (3.5-8.5); WHITE BLOOD COUNT 9.8 10^3/uL (4.5-11.0)
[2018-04-01 07:02] LABS: FREE T4 1.32 ng/dL (0.78-2.19)
[2018-04-01] MEDS: Sodium Chloride 0.45% 1,000 ML IV SCH ×4 (07:46→23:16)
[2018-04-01] MEDS ORDERED: Propofol 10 mg/ml Inj (20 ML) ONE (10:50)
[2018-04-01] MEDS: Insulin Lispro (humaLOG) MEDIUM Coverage SC SCH ×3 (13:39→23:15)
--- NOTE | 2018-04-01 14:56 | PN ---
DATE: 04/01/2018 SUBJECTIVE: The patient's chest discomfort is resolved. There is no evidence for acute coronary syndrome. PHYSICAL EXAMINATION: VITAL SIGNS: Stable. NECK: Negative JVD. LUNGS: Without rales. HEART: S1 and S2. EXTREMITIES: Without edema. LABORATORY DATA: Hemoglobin is 12. Chemistry: BUN and creatinine is 37 and 2.6. IMPRESSION: 1. No evidence for acute coronary syndrome. 2. Chest pain. 3. Renal insufficiency with a prerenal component. 4. Diabetes mellitus. 5. Hypertension. PLAN: Given these findings, from a cardiac perspective, the patient can be discharged. We will arrange for an outpatient stress test given his cardiac risk factors. Matt Robledo MD
--- NOTE | 2018-04-01 15:54 | PN ---
DATE: 04/01/2018 SUBJECTIVE: The patient is 57-year-old, seen and examined, states he is doing better. No more nausea. PHYSICAL EXAMINATION: VITAL SIGNS: He is afebrile. Pulse 84, respirations 17, blood pressure 139/86. LUNGS: Bilateral fair airflow. No rhonchi or crackle. HEART: S1 and S2 audible. ABDOMEN: Soft, obese, and nontender. No rebound. No guarding. NEUROLOGIC: He is awake, alert, oriented, able to communicate. EXTREMITIES: Ambulatory, bilateral leg. No edema. LABORATORY DATA: His WBC is 9.8, hemoglobin 12, hematocrit 36, platelet of 251. Chemistry: Sodium 138, potassium 3.2, chloride 98, CO2 of 29, BUN 37, creatinine 2.6, blood sugar of 87. Had renal sonogram done yesterday that shows no significant abnormality. ASSESSMENT: 1. Gastroenteritis for the last 10 days. 2. Prerenal azotemia. 3. Noninsulin-dependent diabetes. 4. Hypokalemia. PLAN: We will supplement potassium. We will continue him on current IV fluid. We will follow up his CBC and CMP in a.m. The patient is going for endoscopy to rule out gastroparesis. After endoscopy, we can start him on diet and see his response. We will follow up this patient in a.m. Waldemar Chicas MD
[2018-04-01 23:52] VITALS: RESP 20; O2SAT 97
[2018-04-02 06:05] VITALS: TEMP 98.7
[2018-04-02 07:54] LABS: ALB/GLOB RATIO 1.3 (1.1-1.8); ALBUMIN 4.2 g/dL (3.0-4.8); CALCIUM 8.7 mg/dL (8.4-10.5)
[2018-04-02] MEDS: Insulin Lispro (humaLOG) MEDIUM Coverage SC SCH (08:31)
[2018-04-02] MEDS: Sodium Chloride 0.45% 1,000 ML IV SCH (08:32)
[2018-04-02 09:38] VITALS: BP 141/93; PULSE 93
[2018-04-02] MEDS ORDERED: Potassium Chloride 20 mEq ER Tab PO ONE (10:55)
--- NOTE | 2018-04-02 13:15 | PN ---
DATE: 04/02/2018 SUBJECTIVE: The patient is sitting up in bed. He denies any further nausea, vomiting, diarrhea, abdominal pain. He is tolerating solid foods. PHYSICAL EXAMINATION: VITAL SIGNS: Reveal temperature of 98.7, blood pressure 111/74, heart rate 81. HEENT: Reveal sclerae to be white. Conjunctivae pink. NECK: Supple. CHEST: Lungs are clear. HEART: Exam reveals regular rate and rhythm. ABDOMEN: Obese, soft, nontender. EXTREMITIES: Show no edema. LABORATORY DATA: Reveal hemoglobin 12.0, BUN 28, creatinine 1.9, blood sugar 145, potassium 3.3. AST, ALT, alk phos were all normal. IMPRESSION: A 57-year-old male admitted to the hospital with intractable vomiting, dehydration, prerenal azotemia, hypoglycemia. Upper endoscopy performed yesterday revealed grade A distal esophagitis. There is no evidence of gastric outlet obstruction. RECOMMENDATIONS: 1. The patient has been instructed to schedule an elective colonoscopy as he has not had one for over 10 years, he agrees to do this. 2. Continue Protonix 40 mg once a day. 3. Low-fat, low-residue diet. 4. Outpatient medical followup. Carlos Gomez MD
--- NOTE | 2018-04-02 13:42 | PN ---
DATE: 04/02/2018 CARDIOLOGY FOLLOWUP SUBJECTIVE: The patient is chest pain free. OBJECTIVE: VITAL SIGNS: Stable. Blood pressure is 141/93 and heart rates in the 90s. NECK: Negative JVD. LUNGS: Without rales. HEART: S1 and S2. EXTREMITIES: Without edema. LABORATORY DATA: Hemoglobin is 12. Chemistries, BUN and creatinine is 28 and 1.9 with a glucose of 145. IMPRESSION: 1. Renal insufficiency. 2. Resolution of chest pain. 3. No evidence of acute coronary syndrome. 4. Diabetes mellitus. 5. Hypertension. PLAN: Given these findings, I have discussed the need for a stress test given his cardiac risk factors. I have offered to make arrangements to have him undergo a stress test as an outpatient. The patient refuses, he is moving out of the area. The patient understands and he will follow up with his doctors in his new home. Matt Robledo MD
--- NOTE | 2018-04-03 03:23 | DS ---
HISTORY OF PRESENT ILLNESS: The patient is a 57-year-old, seen and examined, doing much better, begging to go home. He states he feels a lot better. He is eating and tolerating. No more nausea or vomiting. PHYSICAL EXAMINATION: VITAL SIGNS: He is afebrile, pulse 81, respirations 20, blood pressure 141/93. LUNGS: Bilateral good airflow. No rhonchi or crackle. HEART: S1 and S2, audible. ABDOMEN: Soft, nontender, obese. No hepatosplenomegaly. NEUROLOGICAL: The patient is awake, alert, oriented, communicative. LABORATORY EXAMINATION: Sodium 138, potassium 3.3, chloride 99, CO2 of 30, BUN 28, creatinine 1.9, blood sugar of 143. LFTs are within normal limits. ASSESSMENT: 1. Acute renal failure. 2. Status post intractable vomiting. 3. Hypertension. 4. Hyperlipidemia. 5. Status post endoscopy to rule out gastroparesis. PLAN: The patient is clinically stable. His creatinine is trending down. He is being discharged home. There is no more need for any antibiotics. He can resume his medications including Coreg, metformin, atorvastatin, and we will discontinue PPI. He is advised to take [id number] Pepcid. He will follow up with his PMD. Waldemar Chicas MD
--- NOTE | 2018-04-03 12:40 | CARD ---
APPROVED REPORT Date of service: 03/31/2018 EXAM: Two-dimensional and M-mode echocardiogram with Doppler and color Doppler. INDICATION Abnormal EKG/Arrhythmia 2D DIMENSIONS Left Atrium (2D)3.8 (1.6-4.0cm)IVSd1.4 (0.7-1.1cm) LVDd4.5 (3.9-5.9cm)PWd1.3 (0.7-1.1cm) LVDs3.3 (2.5-4.0cm)FS (%) 25.4 % LVEF (%)50.3 (>50%) M-Mode DIMENSIONS Aortic Root4.20 (2.2-3.7cm)Aortic Cusp Exc.2.00 (1.5-2.0cm) Aortic Valve AoV Peak Bpotsobn117.0cm/Zaynab Peak GR.4mmHg Mitral Valve MV E Ymdioeev76.4cm/sMV A Iiqowtlh57.5cm/sE/A ratio0.6 TDI Lateral E' Peak V6.24cm/sMedial E' Peak V8.58cm/sE/Lateral E'9.2 E/Medial E'6.7 Pulmonary Valve PV Peak Dzdyxuab08.5cm/sPV Peak Grad.1mmHg Tricuspid Valve TR Peak Vpapqbau863xs/sRAP [id number] Peak Gr.11mmHg [id number] LEFT VENTRICLE There is mild concentric left ventricular hypertrophy. The left ventricular function is normal. The left ventricular ejection fraction is within the normal range. RIGHT VENTRICLE The right ventricle is normal size. ATRIA The left atrium size is normal. The right atrium size is normal. AORTIC VALVE The aortic valve is thickened but opens well. MITRAL VALVE The mitral valve is thickened but opens well. TRICUSPID VALVE The tricuspid valve leaflets are thickened , but open well. There is trace to mild tricuspid regurgitation. There is no pulmonary hypertension. PULMONIC VALVE The pulmonic valve is mildly thickened. PERICARDIAL EFFUSION There is no pericardial effusion. <Conclusion> Mild LVH with good LV function MildTR No pulmonary hypertension
== END 2018-04-02 12:38 | disposition home or self-care (01) ==
LOC: ED 00:11 → ERH 03:16 → INTOOBSV 03:16 → ERH 03:32 → 2RNO 05:35
PROVIDERS: ADMIT Internal Medicine; ATTEND Internal Medicine
DX: N17.9 Acute kidney failure, unspecified (principal); E86.0 Dehydration; E11.649 Type 2 diabetes mellitus with hypoglycemia without coma; K52.9 Noninfective gastroenteritis and colitis, unspecified; K20.9 Esophagitis, unspecified; K29.50 Unspecified chronic gastritis without bleeding; B96.81 Helicobacter pylori [H. pylori] as the cause of diseases classified elsewhere; R07.89 Other chest pain; E78.5 Hyperlipidemia, unspecified; E87.6 Hypokalemia; I10 Essential (primary) hypertension; G47.33 Obstructive sleep apnea (adult) (pediatric); J45.909 Unspecified asthma, uncomplicated; I25.2 Old myocardial infarction; Z79.82 Long term (current) use of aspirin; Z79.84 Long term (current) use of oral hypoglycemic drugs
CPT/HCPCS: 36415; 43239; 71045; 76770; 80053; 80061; 82550; 82948; 83036; 83615; 83690; 84153; 84439; 84443; 84484; 84550; 85025; 85027; 85610; 85730; 87177; 87209; 88305; 88312; 88342; 93005; 93306; 96361; 96374; 96375; 96376; 99282; C9113; G0378; J1200; J2704; J2765; J3480; J7030; J7040; J7042